=== PATIENT | male | born 1960 | race Caucasian/White ===

== ENCOUNTER 2023-01-22 08:23 | Emergency (ER) | payer OTHER ==
[2023-01-22 08:39] VITALS: BP 163/114; O2SAT 99
[2023-01-22 09:13] LABS: BASOPHILS # (AUTO) 0.1 10^3/uL (0.0-0.1); EOSINOPHILS # (AUTO) 0.3 10^3/uL (0.0-0.7); EOSINOPHILS % (AUTO) 5.9 %; HCT - HEMATOCRIT 53.1 % (42.0-52.0); HGB - HEMOGLOBIN 18.3 g/dL (14.0-18.0); LYMPHOCYTES # (AUTO) 1.5 10^3/uL (1.5-3.5); LYMPHOCYTES % (AUTO) 29.4 %; MEAN CORPUSCULAR HEMOGLOBIN 30.7 pg (27.0-31.0); MEAN CORPUSCULAR HGB CONC 34.5 g/dL (32.0-36.0); MEAN CORPUSCULAR VOLUME 88.9 fL (80.0-94.0); MEAN PLATELET VOLUME 10.7 fL (7.4-11.4); MONOCYTES # (AUTO) 0.4 10^3/uL (0.0-1.0); MONOCYTES % (AUTO) 7.9 %; NEUTROPHILS # (AUTO) 2.7 10^3/uL (1.5-6.6); NEUTROPHILS % (AUTO) 55.6 %; PLT - PLATELET COUNT 126 10^3/uL (130-450); RED BLOOD COUNT 5.97 10^6/uL (4.70-6.10); RED CELL DISTRIBUTION WIDTH 12.1 % (12.0-15.0); WHITE BLOOD COUNT 4.9 x10^3/uL (4.8-10.8)
--- NOTE | 2023-01-22 09:21 | ED Physician Documentation ---
PD HPI ABD PAIN - Stated complaint Stated Complaint: ABD PX - Chief complaint Chief Complaint: Abd Pain - History obtained from History obtained from: Patient - Additional information Additional information: Patient is a 62-year-old male presenting for evaluation of epigastric abdominal pain that has been present intermittently since Friday. He reports it started after eating a pork chop and baked potato. He denies associated nausea and vomiting. He last had toast at 1:00 this morning and reports that actually made his symptoms feel better. He reports that at times the discomfort radiates to his back. He describes it currently as feeling like a fullness or something is in his stomach. He does not take NSAIDs. Last bowel movement was 2 days ago. Denies blood in stools. No dysuria or hematuria. Denies chest pain, shortness of air or fevers. Went to the walk-in clinic this morning and was directed to the emergency department for further evaluation. Review of Systems Constitutional: denies: Fever Cardiac: denies: Chest pain / pressure Respiratory: denies: Dyspnea GI: reports: Abdominal Pain. denies: Nausea, Vomiting, Bloody / black stool : denies: Dysuria PD PAST MEDICAL HISTORY - Past Medical History Endocrine/Autoimmune: Type 2 diabetes - Past Surgical History Past Surgical History: Yes - Present Medications Home Medications: Ambulatory Orders Medication Instructions Recorded Confirmed Omeprazole Magnesium 20 mg PO DAILY #30 cap 01/22/23 - Allergies Allergies/Adverse Reactions: Allergies Allergy/AdvReac Type Severity Reaction Status Date / Time No Known Drug Allergies Allergy Verified 01/22/23 08:38 - Social History Does the pt smoke?: No Smoking Status: Never smoker PD ED PE NORMAL - General General: Alert and oriented X 3, No acute distress - HEENT HEENT: Atraumatic, Moist mucous membranes, Pharynx benign - Neck Neck: Supple, no meningeal sign - Cardiac Cardiac: RRR, Strong equal pulses - Respiratory Respiratory: No respiratory distress, Clear bilaterally - Abdomen Abdomen: Normal bowel sounds, Soft, Non distended, Other (Protuberant abdomen, mild epigastric tenderness, no right upper quadrant tenderness on deep palpation) - Derm Derm: Warm and dry - Neuro Neuro: Normal speech Results - Vitals Vitals: Vital Signs - 24 hr 01/22/23 08:31 Temperature 36.6 C Heart Rate 65 Respiratory 18 Rate Blood Pressure 163/114 H O2 Saturation 99 Oxygen O2 Source Room air - EKG (time done) 0847 EKG releavant findings:: EKG personally interpreted by author of this note. Relevant findings are: Rate 62, normal sinus rhythm, no STEMI, no ST depressions - Labs Labs: Laboratory Tests 01/22/23 01/22/23 08:55 08:55 WBC 4.9 RBC 5.97 Hgb 18.3 H Hct 53.1 H MCV 88.9 MCH 30.7 MCHC 34.5 RDW 12.1 Plt Count 126 L MPV 10.7 Neut # (Auto) 2.7 Lymph # (Auto) 1.5 [place] # (Auto) 0.4 Eos # (Auto) 0.3 Baso # (Auto) 0.1 Absolute Nucleated RBC 0.00 Nucleated RBC % 0.0 Sodium 138 Potassium 4.1 Chloride 103 Carbon Dioxide 31 Anion Gap 4.0 L BUN 15 Creatinine 1.2 Estimated GFR (MDRD) 62 L Glucose 107 H Calcium 9.2 Total Bilirubin 1.2 H AST 25 ALT 31 Alkaline Phosphatase 68 Troponin I High Sens 9.5 Total Protein 7.1 Albumin 4.1 Globulin 3.0 Albumin/Globulin Ratio 1.4 Lipase 106 H PD Medical Decision Making - ED course ED course: Patient is a 62-year-old male presenting for evaluation of epigastric abdominal pain that has been intermittent for the past 2 days. No significant tenderness noted on exam. No right upper quadrant tenderness. Denies chest pain. EKG was obtained without signs of acute ischemia. CBC, chemistries, troponin were obtained and reviewed without significant findings. I reevaluated the patient and he reports not having much discomfort at this time. No real tenderness noted on exam. At this time I do not feel a CT scan would be beneficial. He may need an upper endoscopy or referral to GI. Patient counseled on trial of diet modifications as well as a PPI. He was also counseled on need for follow- up with primary care provider. Discussed concerning symptoms to return for. Initial BP noted to be elevated. Patient does not have symptoms to suggest hypertensive emergency. 0951 - Reports only having a dull ache right now. Not much pain. Departure - Departure Disposition: 01 Home, Self Care Clinical Impression: Epigastric abdominal pain Condition: Stable Instructions: ED Epigastric Pain [facility] Prescriptions: Omeprazole Magnesium 20 mg PO DAILY #30 cap Comments: There are many potential reasons that you could be having pain in the upper part of your abdomen including irritation in your stomach, ulcers, gallbladder issues. Your labs are reassuring and your pain does not appear to be severe at this time. I would recommend close outpatient follow-up with your primary care provider. In the meanwhile I would recommend you avoid certain types of foods that may worsen your pain as such as those that are spicy, acidic, citrusy, greasy or fried.I have also sent a prescription for an [id number] acid reducing medication to [facility] in [place] that you can also try to see if this helps with your symptoms. If at anytime your symptoms worsen or you develop pain in a new location please consider return to the emergency department for another evaluation. Forms: PCP List Discharge Date/Time: 01/22/23 10:21
[2023-01-22 09:32] LABS: ALBUMIN 4.1 g/dL (3.2-5.5); ALBUMIN/GLOBULIN RATIO 1.4 (1.0-2.2); BILIRUBIN,TOTAL 1.2 mg/dL (0.2-1.0); CALCIUM 9.2 mg/dL (8.5-10.3); CREATININE 1.2 mg/dL (0.6-1.3); POTASSIUM 4.1 mmol/L (3.5-4.5); TOTAL PROTEIN 7.1 g/dL (6.4-8.9)
[2023-01-22 09:34] LABS: TROPONIN I HIGH SENSITIVITY 9.5 ng/L (2.3-19.7)
== END 2023-01-22 10:21 | disposition home or self-care (01) ==
LOC: ED 08:23
DX: R10.13 Epigastric pain (principal)
CPT/HCPCS: 36415; 80053; 83690; 84484; 85025; 93005; 99284